=== PATIENT | male | born 1960 | race Caucasian/White ===

== ENCOUNTER 2019-04-04 19:36 | Inpatient (IN) | payer OTHER ==
[2019-04-04 20:06] LABS: #Lymphocytes 0.8 thou/uL (1.20-3.40); #Monocytes 1.1 thou/uL (0.11-0.59); #Neutrophils 14.5 thou/uL (1.40-6.50); %Basophils 0.2 % (0.0-1.0); %Eosinophils 0.2 % (0.0-10.0); %Lymphocytes 5.1 % (21.0-51.0); %Monocytes 6.8 % (0.0-10.0); %Neutrophils 87.7 % (42.0-75.0); Hemoglobin 15.6 g/dL (14.0-18.0); Mean Corpuscular HGB CONC 34.5 g/dL (32.0-36.0); Mean Corpuscular Hemoglobin 32.2 pg (27.0-31.0); Mean Corpuscular Volume 93.3 fL (78.0-98.0); Mean Platelet Volume 6.8 fL (7.4-10.4); Platelet Count 362 thou/uL (130-400); RBC Distribution Width 12.2 % (11.5-14.5); Red Blood Cell (RBC) Count 4.85 mill/uL (4.70-6.10); White Blood Cell (WBC) Count 16.6 thou/uL (4.8-10.8)
[2019-04-04 20:32] LABS: ALT (SGPT) 24 U/L (8-55); AST (SGOT) 23 U/L (5-34); Alcohol Less than 10 mg/dL (Less than 10); Alkaline Phosphatase 77 U/L (40-110); Anion Gap 13 mmol/L (10-20); BUN (Urea Nitrogen) 9 mg/dL (8.4-25.7); Bilirubin, Total 0.4 mg/dL (0.2-1.2); Calc. Creatinine Clearance 0 mL/min (70-130); Calcium 8.9 mg/dL (7.8-10.44); Carbon Dioxide 18 mmol/L (22-29); Chloride 95 mmol/L (98-107); Estimated GFR-MDRD 50; Globulin 3.2 g/dL (2.4-3.5); Glucose 123 mg/dL (70-105); Potassium 4.3 mmol/L (3.5-5.1); Protein, Total 7.2 g/dL (6.0-8.3); Salicylate Less than 8.0 mg/dL (15.0-30.0); Sodium 122 mmol/L (136-145)
[2019-04-04] MEDS ORDERED: Lorazepam 2 MG/ML VIAL ONE (20:38)
--- NOTE | 2019-04-04 21:15 | CT ---
CT BRAIN NONCONTRAST: DATE: 04/04/2019 HISTORY: 58-year-old male status post seizure. Altered mental status. Loss of consciousness. Head trauma due t o fall. FINDINGS: There is no evidence of acute intra-axial or extra-axial hemorrhage. There is no midline shift or any other mass effect. There is no extra-axial fluid collection. There is no evidence of obstructive hydrocephalus. Calvarium is intact. Minimally displaced old fracture of left lateral orbital wall, wh ich was present on previous CT of 10/23/2011. IMPRESSION: No acute intracranial findings.
[2019-04-05] MEDS ORDERED: Acetaminophen 650 MG Suppository PR PRN (02:20)
[2019-04-05] MEDS ORDERED: Ondansetron PF 4 MG/2 ML Vial IVP PRN (02:20)
[2019-04-05] MEDS ORDERED: Acetaminophen 325 MG TAB PO PRN (02:20)
[2019-04-05] MEDS ORDERED: Ondansetron ODT 4 MG TAB PO PRN (02:20)
[2019-04-05 04:32] LABS: #Eosinphils 0.1 thou/uL (0.0-0.7); #Lymphocytes 1.6 thou/uL (1.20-3.40); #Monocytes 0.9 thou/uL (0.11-0.59); %Basophils 0.5 % (0.0-1.0); %Eosinophils 0.7 % (0.0-10.0); %Lymphocytes 18.3 % (21.0-51.0); %Monocytes 10.8 % (0.0-10.0); %Neutrophils 69.8 % (42.0-75.0); Hemoglobin 13.3 g/dL (14.0-18.0); Mean Corpuscular HGB CONC 34.3 g/dL (32.0-36.0); Mean Corpuscular Hemoglobin 32.1 pg (27.0-31.0); Mean Corpuscular Volume 93.6 fL (78.0-98.0); Mean Platelet Volume 6.4 fL (7.4-10.4); Platelet Count 318 thou/uL (130-400); RBC Distribution Width 12.1 % (11.5-14.5); Red Blood Cell (RBC) Count 4.14 mill/uL (4.70-6.10); White Blood Cell (WBC) Count 8.6 thou/uL (4.8-10.8)
[2019-04-05 04:53] LABS: Anion Gap 7 mmol/L (10-20); BUN (Urea Nitrogen) 10 mg/dL (8.4-25.7); Calc. Creatinine Clearance 0 mL/min (70-130); Calcium 7.7 mg/dL (7.8-10.44); Carbon Dioxide 24 mmol/L (22-29); Chloride 105 mmol/L (98-107); Estimated GFR-MDRD 66; Glucose 95 mg/dL (70-105); Potassium 4.1 mmol/L (3.5-5.1); Sodium 132 mmol/L (136-145)
[2019-04-05] MEDS ORDERED: Enoxaparin Sodium 40 MG/0.4 ML SYRINGE SC SCH (09:00)
[2019-04-05] MEDS ORDERED: Senokot S 8.6-50 MG TAB PO PRN (09:12)
[2019-04-05] MEDS ORDERED: Calcium Carbonate 500 MG ChewTAB PO PRN (09:12)
[2019-04-05] MEDS ORDERED: Sodium Chloride 0.9% 1,000 ML IV SCH (09:15)
[2019-04-05] MEDS ORDERED: Famotidine 20 MG TAB ONE (10:37)
[2019-04-05] MEDS ORDERED: Enoxaparin Sodium 40 MG/0.4 ML SYRINGE ONE (10:37)
[2019-04-05] MEDS ORDERED: levETIRAcetam 500 MG/100 ML PREMIX BAG ONE (10:37)
[2019-04-05 11:07] LABS: Bilirubin Negative (Negative); Blood, Urine Negative (Negative); Clarity Clear (Clear); Glucose, Urine (Dipstick) 30 mg/dL (Negative); Leukocyte Negative Leu/uL (Negative); Nitrite Negative (Negative); Protein, Urine (Dipstick) 20 mg/dL (Neg-Trace); Urobilinogen Normal mg/dL (Less than 2)
[2019-04-05] MEDS ORDERED: Nicotine 14 MG PATCH TD PRN (11:12)
[2019-04-05 11:54] VITALS: BMI 26.4
[2019-04-05 12:47] LABS: Amphetamine Not Detected (NotDetected); Barbiturates Screen Not Detected (NotDetected); Benzodiazepine Screen Not Detected (NotDetected); Cocaine Metabolite Screen Not Detected (NotDetected); Medtox Control Line Valid? VALID (VALID); Medtox Reader # READER 1; Methadone Not Detected (NotDetected); Methamphetamine Not Detected (NotDetected); Opiate Screen Not Detected (NotDetected); Oxycodone Screen Not Detected (NotDetected); Phencyclidine (PCP) Not Detected (NotDetected); THC/Cannabinoid Screen Not Detected (NotDetected); Tricyclic Screen Detected (NotDetected)
[2019-04-05 15:46] VITALS: BP 136/82; TEMP 98.4
--- NOTE | 2019-04-05 19:30 | CON ---
DATE OF CONSULTATION: 04/05/2019 CONSULTING PHYSICIAN: Hospitalist Service. IMPRESSION: 1. Syncope secondary to hypotension. 2. History of seizures, on Tegretol. PLAN: 1. Continue Tegretol 200 mg twice a day. 2. Adjust blood pressure medication. HISTORY OF PRESENT ILLNESS: Mr. Vasquez is a 58-year-old man, who was recently an inmate. He reports having history of seizures for several years. He has been on Tegretol for a number of years. They have been under reasonably good control. He had medications adjusted by 2 different physicians. He was standing when he suddenly lost consciousness. He awoke on the floor. He did not have any trauma to his tongue, incontinence, or muscle soreness. He tried to get up off the floor and continued to feel quite dizzy. When he was first evaluated, his blood pressure was 60/40. His lab work was unremarkable other than a prolactin of 89. He had a CT scan of the brain done, which was normal. PAST MEDICAL HISTORY: Hypertension, bipolar disorder. ALLERGIES: NONE. SOCIAL HISTORY: He is a prior inmate. FAMILY HISTORY: Noncontributory. REVIEW OF SYSTEMS: 10-system review of systems is otherwise negative. PHYSICAL EXAMINATION: GENERAL: He is a well-nourished, middle-aged man, in no acute distress. VITAL SIGNS: Better with a blood pressure in the 100/60 range while lying down. HEENT: Pupils are equal and reactive. Conjunctivae are clear. Oropharynx clear. Cranium, normocephalic and atraumatic. NECK: Supple. EXTREMITIES: No cyanosis or edema. NEUROLOGIC: Alert and appropriate. His speech is fluent and clear. Cranial nerves 2 through 12 are intact. Motor exam shows good strength bilaterally. He has no fix or drift. He had no tremor or asterixis. Sensation was intact. Gait was not tested. LABORATORY DATA: EKG shows a sinus rhythm. SUMMARY: A middle-aged man, who has accidentally overmedicated with blood pressure medication and has caused a secondary syncopal episode. His seizures seem to be under good control by his history. I would continue the Tegretol and I would be happy to follow up with him as an outpatient. Job ID: [id number]
--- NOTE | 2019-04-05 19:45 | DIS ---
DATE OF ADMISSION: 04/04/2019 DATE OF DISCHARGE: 04/05/2019 DISCHARGE DISPOSITION: Home. FOLLOWUP: Follow up with [facility] in 1 week. ALLERGIES: NO KNOWN DRUG ALLERGIES. DISCHARGE INSTRUCTIONS: 1. A basic metabolic profile after 1 week is recommended, primary care physician advised to follow. 2. No driving until cleared by MD. DISCHARGE MEDICATIONS: Prazosin, clonidine, and lisinopril were discontinued. All other home medications were left unchanged. BRIEF HOSPITAL COURSE: The patient is a 58-year-old male with hypertension, bipolar disorder, and anxiety, presented to the hospital with altered mentation. His blood pressure in the emergency room was 57/39. Please refer to the history and physical dated [address] Humera Cantu for further details. The patient was admitted to the hospital with a diagnosis of altered mentation along with seizure and hypotension. The patient was found to have seizure-like activity per EMS. His blood pressure when EMS arrived was 66/42. His blood pressure improved after 4 L of IV fluid in the emergency room. He was monitored overnight in the stroke unit. His blood pressure at discharge was 136/82. CT scan of the brain was negative for acute findings. He was also found to have acute kidney injury with creatinine of 1.45 on admission that improved with IV hydration. His sodium on admission was 122 that improved to 132 after IV hydration. SIGNIFICANT LABORATORY DATA: 1. Prolactin level was 89. 2. Cortisol was 8.4. 3. Urine drug screen was negative except for tricyclics. Plasma alcohol was negative. Depakote level was negative. 4. Bicarbonate on admission was 18, at discharge is 24. FINAL DIAGNOSES: 1. Toxic metabolic encephalopathy, multifactorial. 2. Hypotension secondary to dehydration as well as antihypertensives. 3. Leukocytosis, unlikely to be infectious. 4. Acute kidney injury on chronic kidney disease stage 2 secondary to dehydration. 5. Hyponatremia, resolved. 6. Anxiety. 7. Depression, mild, stable. 8. Hyperlipidemia. 9. Bipolar disorder. 10. Chronic pain syndrome. 11. Metabolic acidosis. Plan was discussed with the patient in detail. He stated understanding. The patient was advised to monitor his blood pressure on a daily basis. He was also advised not to drive until under cleared by MD. INPATIENT ACCESS SPEC: Neurology, Dr. Gusman. Dr. Gusman recommended to continue Tegretol. Job ID: [id number]
[2019-04-05] MEDS ORDERED: Ziprasidone 60 MG CAP PO SCH (21:00)
[2019-04-05] MEDS ORDERED: carBAMazepine 200 MG TAB PO SCH (21:00)
[2019-04-05] MEDS ORDERED: levETIRAcetam 500 MG TAB PO SCH (21:00)
[2019-04-05] MEDS ORDERED: Atorvastatin Calcium 10 MG TAB PO SCH (21:00)
[2019-04-05] MEDS ORDERED: Famotidine 20 MG TAB PO SCH (21:00)
[2019-04-05] MEDS ORDERED: Gabapentin 300 MG CAP PO SCH (21:00)
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
[2019-04-06] MEDS ORDERED: Venlafaxine HCl XR 150 MG CAP PO SCH (09:00)
[2019-04-06] MEDS ORDERED: Prevnar 13-Val Conj/PF 0.5 ML SYRINGE IM ONE (12:15)
[2019-04-06] MEDS ORDERED: FLU VACC QS2019-20(6MOS UP)/PF 60 MCG/0.5 ML SYRINGE IM ONE (12:15)
--- NOTE | 2019-04-07 12:11 | EKG ---
Test Reason : AMS Blood Pressure : / mmHG Vent. Rate : 088 BPM Atrial Rate : 088 BPM P-R Int : 134 ms QRS Dur : 086 ms QT Int : 384 ms P-R-T Axes : 064 058 056 degrees QTc Int : 464 ms Normal sinus rhythm Normal ECG Confirmed by ALEXANDRO GAMEZ ([id number]), editor publications COURTNEY PUENTE ([id number]) on 04/07/2019 12:10:40 PM Referred By: Confirmed By:ALEXANDRO GAMEZ
== END 2019-04-05 18:15 | disposition home or self-care (01) | DRG 682 ==
LOC: ERS 19:36 → ERHOLD 23:10 → 2SE 04-05 11:34
PROVIDERS: ADMIT Hospitalist; ATTEND Hospitalist
PROC: 3E02340 Introduction of Influenza Vaccine into Muscle, Percutaneous Approach (ICD-10-PCS; principal; 2019-04-05)
PROC: 3E0234Z Introduction of Serum, Toxoid and Vaccine into Muscle, Percutaneous Approach (ICD-10-PCS; 2019-04-05)
DX: N17.9 Acute kidney failure, unspecified (principal); G92 Toxic encephalopathy; E87.2 Acidosis; E87.1 Hypo-osmolality and hyponatremia; E78.00 Pure hypercholesterolemia, unspecified; I95.2 Hypotension due to drugs; G43.909 Migraine, unspecified, not intractable, without status migrainosus; F31.9 Bipolar disorder, unspecified; F41.9 Anxiety disorder, unspecified; E86.0 Dehydration; N18.2 Chronic kidney disease, stage 2 (mild); F17.210 Nicotine dependence, cigarettes, uncomplicated; I12.9 Hypertensive chronic kidney disease with stage 1 through stage 4 chronic kidney disease, or unspecified chronic kidney disease; E78.5 Hyperlipidemia, unspecified; G89.4 Chronic pain syndrome; D72.829 Elevated white blood cell count, unspecified; T46.5X1A Poisoning by other antihypertensive drugs, accidental (unintentional), initial encounter; G40.909 Epilepsy, unspecified, not intractable, without status epilepticus; Z79.899 Other long term (current) drug therapy; Z23 Encounter for immunization
CPT/HCPCS: 36415; 70450; 80048; 80053; 80164; 80306; 80307; 81003; 82533; 83735; 84146; 85025; 93005; J1650; J1953; J2060

== ENCOUNTER 2019-04-08 14:20 | Emergency (ER) | payer OTHER ==
[2019-04-08 15:42] LABS: #Eosinphils 0.1 thou/uL (0.0-0.7); #Lymphocytes 1.5 thou/uL (1.20-3.40); #Neutrophils 8.1 thou/uL (1.40-6.50); %Basophils 0.2 % (0.0-1.0); %Eosinophils 0.8 % (0.0-10.0); %Lymphocytes 14.2 % (21.0-51.0); %Monocytes 8.9 % (0.0-10.0); %Neutrophils 75.9 % (42.0-75.0); Hemoglobin 14.4 g/dL (14.0-18.0); Mean Corpuscular HGB CONC 33.8 g/dL (32.0-36.0); Mean Corpuscular Hemoglobin 32.4 pg (27.0-31.0); Mean Corpuscular Volume 95.6 fL (78.0-98.0); Mean Platelet Volume 6.6 fL (7.4-10.4); Platelet Count 331 thou/uL (130-400); RBC Distribution Width 12.3 % (11.5-14.5); Red Blood Cell (RBC) Count 4.44 mill/uL (4.70-6.10); White Blood Cell (WBC) Count 10.6 thou/uL (4.8-10.8)
--- NOTE | 2019-04-08 15:44 | RAD ---
Exam: Chest one view HISTORY:Fall with syncope Comparison: 10/23/2011 FINDINGS: Lungs: No masses or consolidation. Cardiac silhouette: Normal size Pulmonary vessels: Normal Pleural Spaces: Slight blunting of left lateral costophrenic sulcus. Pneumothorax: None Osseous abnormalities: None of acuity. IMPRESSION: No focal consolidation. Slight blunting of costophrenic sulcus which may relate to minimal pleural fluid versus pleural thick ening.
--- NOTE | 2019-04-08 16:22 | CT ---
CT HEAD WITHOUT CONTRAST: INDICATIONS: Injury. Fall with head injury. COMPARISON: 04/04/2019 FINDINGS: There is mild frontal lobe atrophy, which is again noted. There is no evidence of intracranial hemorr miguel. No mass, edema or infarct. The sinuses are clear. No interval change. IMPRESSION: No acute findings. POS: OFF
[2019-04-08 16:25] LABS: INR-International Normal Ratio 0.9; PTT 28.8 SEC (22.9-36.1); Prothrombin Time 12.4 SEC (12.0-14.7)
[2019-04-08 16:27] LABS: D-Dimer Test 0.37 *mcg/mL (0.27-0.43)
[2019-04-08 16:42] LABS: ALT (SGPT) 15 U/L (8-55); AST (SGOT) 13 U/L (5-34); Albumin 3.9 g/dL (3.5-5.0); Alkaline Phosphatase 70 U/L (40-110); Anion Gap 15 mmol/L (10-20); BUN (Urea Nitrogen) 9 mg/dL (8.4-25.7); Bilirubin, Total 0.2 mg/dL (0.2-1.2); CK (CPK) 37 U/L (30-200); Calc. Creatinine Clearance 0 mL/min (70-130); Calcium 9.6 mg/dL (7.8-10.44); Carbon Dioxide 22 mmol/L (22-29); Chloride 100 mmol/L (98-107); Estimated GFR-MDRD 66; Globulin 2.8 g/dL (2.4-3.5); Glucose 91 mg/dL (70-105); Potassium 4.2 mmol/L (3.5-5.1); Protein, Total 6.7 g/dL (6.0-8.3); Sodium 133 mmol/L (136-145)
[2019-04-08] MEDS ORDERED: traMADol HCl 50 MG TAB ONE (17:07)
--- NOTE | 2019-04-10 17:17 | EKG ---
Test Reason : ER Blood Pressure : / mmHG Vent. Rate : 093 BPM Atrial Rate : 093 BPM P-R Int : 134 ms QRS Dur : 088 ms QT Int : 352 ms P-R-T Axes : 039 038 035 degrees QTc Int : 437 ms Normal sinus rhythm Normal ECG Confirmed by WILMAN PRO MD ([id number]), electronic news gathering editor MAXI JOE ([id number]) on 04/10/2019 5:16:53 PM Referred By: Confirmed By:WILMAN PRO MD
== END 2019-04-08 18:36 | disposition home or self-care (01) ==
LOC: ERS 14:20
DX: S01.102A Unspecified open wound of left eyelid and periocular area, initial encounter (principal); R55 Syncope and collapse; T43.595A Adverse effect of other antipsychotics and neuroleptics, initial encounter; E78.00 Pure hypercholesterolemia, unspecified; F31.9 Bipolar disorder, unspecified; F41.9 Anxiety disorder, unspecified; F17.210 Nicotine dependence, cigarettes, uncomplicated; Z79.899 Other long term (current) drug therapy; W18.30XA Fall on same level, unspecified, initial encounter
CPT/HCPCS: 36415; 70450; 71045; 80053; 82550; 83605; 83880; 84484; 85025; 85379; 85610; 85730; 93005; 94760; 96360; 96361

== ENCOUNTER 2019-08-28 13:22 | Inpatient (IN) | payer OTHER, SELFPAY ==
[2019-08-28 13:57] LABS: #Eosinphils 0.1 thou/uL (0.0-0.7); #Monocytes 0.8 thou/uL (0.11-0.59); #Neutrophils 7.7 thou/uL (1.40-6.50); %Basophils 0.1 % (0.0-1.0); %Eosinophils 0.7 % (0.0-10.0); %Lymphocytes 10.2 % (21.0-51.0); %Monocytes 8.8 % (0.0-10.0); %Neutrophils 80.3 % (42.0-75.0); Hemoglobin 13.7 g/dL (14.0-18.0); Mean Corpuscular HGB CONC 34.3 g/dL (32.0-36.0); Mean Corpuscular Hemoglobin 32.9 pg (27.0-31.0); Mean Platelet Volume 7.4 fL (7.4-10.4); Platelet Count 253 thou/uL (130-400); RBC Distribution Width 12.5 % (11.5-14.5); Red Blood Cell (RBC) Count 4.18 mill/uL (4.70-6.10); White Blood Cell (WBC) Count 9.6 thou/uL (4.8-10.8)
--- NOTE | 2019-08-28 13:57 | RAD ---
EXAM: Single view of the chest HISTORY: Altered mental status COMPARISON: 04/08/2019 FINDINGS: Single view of the chest shows a normal sized cardiomediastinal silhouette. There is no gabriella dence of consolidation, mass, or pleural effusion. The bones are unremarkable. IMPRESSION: No evidence of acute cardiopulmonary disease
--- NOTE | 2019-08-28 14:11 | CT ---
CT Brain WO Con: 08/28/2019 1:32 PM CLINICAL HISTORY: Altered mental status; concern for possible overdose. IMAGING TECHNIQUE: Multiple CT images were obtained of the brain without IV contrast. COMPARISON: April 08, 2019 FINDINGS: Brain: No acute infarct or hemorrhage is evident. No midline shift. Ventricles: Normal. No hydrocephalus. Skull: Intact. Visualized Paranasal sinuses: Clear. Mastoid air cells:Clear. Extracranial soft tissues:Normal. IMPRESSION: No acute intracranial abnormality.
[2019-08-28] MEDS ORDERED: Naloxone HCl 0.4 mg/ml Vial ONE (14:13)
[2019-08-28 14:17] LABS: ALT (SGPT) 30 U/L (8-55); AST (SGOT) 29 U/L (5-34); Albumin 4.2 g/dL (3.5-5.0); Alkaline Phosphatase 82 U/L (40-110); Anion Gap 15 mmol/L (10-20); BUN (Urea Nitrogen) 18 mg/dL (8.4-25.7); Bilirubin, Total 0.4 mg/dL (0.2-1.2); Calc. Creatinine Clearance 0 mL/min (70-130); Carbon Dioxide 21 mmol/L (22-29); Chloride 102 mmol/L (98-107); Estimated GFR-MDRD 27; Globulin 2.4 g/dL (2.4-3.5); Glucose 77 mg/dL (70-105); Potassium 4.8 mmol/L (3.5-5.1); Protein, Total 6.6 g/dL (6.0-8.3); Sodium 133 mmol/L (136-145)
[2019-08-28 14:18] LABS: Acetaminophen Less than 6.0 mcg/mL (10.0-30.0); Alcohol Less than 10 mg/dL (Less than 10); Salicylate Less than 8.0 mg/dL (15.0-30.0)
[2019-08-28 14:46] LABS: Bacteria/HPF None Seen HPF (None Seen); Bilirubin Negative (Negative); Blood, Urine Negative (Negative); Clarity Clear (Clear); Glucose, Urine (Dipstick) Normal (Negative); Leukocyte Negative Leu/uL (Negative); Mucous/LPF 1+ LPF (<2+); Nitrite Negative (Negative); Protein, Urine (Dipstick) 30 mg/dL (Neg-Trace); RBC/HPF 0-3 HPF (0-3); Squamous Epithelial 0-3 HPF (0-3); Urobilinogen Normal mg/dL (Less than 2); WBC/HPF 0-3 HPF (0-3)
[2019-08-28 14:53] LABS: Amphetamine Not Detected (NotDetected); Barbiturates Screen Not Detected (NotDetected); Benzodiazepine Screen Not Detected (NotDetected); Cocaine Metabolite Screen Not Detected (NotDetected); Medtox Control Line Valid? VALID (VALID); Medtox Reader # READER 1; Methadone Not Detected (NotDetected); Methamphetamine Not Detected (NotDetected); Opiate Screen Not Detected (NotDetected); Oxycodone Screen Not Detected (NotDetected); Phencyclidine (PCP) Detected (NotDetected); THC/Cannabinoid Screen Not Detected (NotDetected); Tricyclic Screen Detected (NotDetected)
[2019-08-28] MEDS ORDERED: Acetaminophen 325 MG TAB PO PRN (16:22)
[2019-08-28] MEDS ORDERED: Ondansetron PF 4 MG/2 ML Vial IVP PRN (16:22)
[2019-08-28] MEDS ORDERED: Ondansetron ODT 4 MG TAB PO PRN (16:22)
[2019-08-28] MEDS ORDERED: HYDROcodone/Acetaminophen 5/325 mg Tablet PO PRN (16:22)
[2019-08-28] MEDS ORDERED: Bisacodyl 5 MG TAB PO PRN (16:22)
[2019-08-28] MEDS ORDERED: Loperamide HCl 2 MG CAP PO PRN (16:22)
--- NOTE | 2019-08-28 18:47 | ULT ---
Renal ultrasound: 08/28/2019 COMPARISON:None available HISTORY:Acute kidney injury TECHNIQUE: Multiplanar grayscale sonographic imaging of the kidneys and urinary bladder obtained. FINDINGS: The right kidney [id number] x 4.7 x 5.3 cm and demonstratesno mass, hydronephrosis, or st one. The left kidney sgcexsek80.4 x 5.2 x 4.4 cm and demonstratesno evidence for mass, hydronephrosis, or stone. The urinary bladderappears grossly unremarkable. IMPRESSION:No hydronephrosis.
--- NOTE | 2019-08-28 20:23 | PDOC.HHP ---
Hospitalist HPI - History of Present Illness AMS History of Present Illness: 58-year-old gentleman with past medical history of seizure disorder, bipolar disorder, depression, chronic pain syndrome, hypertension, and osteoarthritis presents with altered mental status. Patient was reportedly found by family being less responsive than normal and is blood pressure was low in the field. Upon arrival to [facility] the patient is alert and oriented times three and talking in full sentences. Patient's blood pressure is normalized. He is lethargic though answering questions appropriately. Patient states that he did not take any illicit drugs. Patient does admit to taking a new medication for depression that starts with an L, though he does not remember the name. Patient denies taking access of any medications. Patient denies drinking alcohol. Patient does admit to tobacco use. Patient's urinary drug screen is positive for PCP, though he denies this. Positive for tri-cyclic antidepressants which he has been in the past. Negative alcohol level. Negative for other drugs of abuse. Negative salicylate and acetaminophen levels. Patient has no elevation in WBC count. Urine analysis negative for urinary tract infection. Patient is dehydrated with acute kidney injury present on admission. Patient admitted to the medical unit for further evaluation. Hospitalist ROS - Review of Systems All other systems reviewed; all pertinent +/- noted in HPI/Subj Hospitalist History - Past Medical History Source: patient, old records Cardiac: reports: HTN [facility] SPECIALIST: reports: Seizure Psych: reports: Anxiety, Bipolar, Depression Musculoskeletal: reports: Chronic low back pain, Osteoarthritis - Past Surgical History Past Surgical History: reports: Appendectomy, Other - Family History Family History: reports: hyperlipidemia, hypertension - Social History Smoking Status: Current every day smoker Tobacco Type: chewing tobacco Alcohol: reports: Rare Drugs: reports: none (Patient denies though, PCP positive in urine drug screen) Living Situation: With Family Domestic Violence: Negative Activity level: independent ambulation - Exam General Appearance: NAD, awake alert Eye: anicteric sclera ENT: normocephalic atraumatic, moist mucosa Neck: supple, symmetric, no lymphadenopathy Heart: RRR, no murmur, no gallops, no rubs Respiratory: CTAB, no wheezes, no rales, no ronchi, normal chest expansion, no tachypnea Gastrointestinal: soft, non-tender, non-distended, no guarding, no rigidity Extremities: no edema Skin: no lesions, no rashes Neurological: cranial nerve grossly intact, no focal deficits Musculoskeletal: generalized weakness Psychiatric: A&O x 3, flat affect, somnolent Hospitalist Results - Labs Result Diagrams: 08/28/19 13:38 08/28/19 13:38 Lab results: WBC 9.6 thou/uL (4.8-10.8) 08/28/19 13:38 Hgb 13.7 g/dL (14.0-18.0) L 08/28/19 13:38 Hct 40.1 % (42.0-52.0) L 08/28/19 13:38 MCV 96.0 fL (78.0-98.0) 08/28/19 13:38 Plt Count 253 thou/uL (130-400) 08/28/19 13:38 Neutrophils % 80.3 % (42.0-75.0) H 08/28/19 13:38 Sodium 133 mmol/L (136-145) L 08/28/19 13:38 Potassium 4.8 mmol/L (3.5-5.1) 08/28/19 13:38 Chloride 102 mmol/L (98-107) 08/28/19 13:38 Carbon Dioxide 21 mmol/L (22-29) L 08/28/19 13:38 BUN 18 mg/dL (8.4-25.7) 08/28/19 13:38 Creatinine 2.50 mg/dL (0.7-1.3) H 08/28/19 13:38 Glucose 77 mg/dL (70-105) 08/28/19 13:38 Calcium 9.0 mg/dL (7.8-10.44) 08/28/19 13:38 Total Bilirubin 0.4 mg/dL (0.2-1.2) 08/28/19 13:38 AST 29 U/L (5-34) 08/28/19 13:38 ALT 30 U/L (8-55) 08/28/19 13:38 Alkaline Phosphatase 82 U/L (40-110) 08/28/19 13:38 Troponin I 0.014 ng/mL (< 0.028) 08/28/19 13:38 Serum Total Protein 6.6 g/dL (6.0-8.3) 08/28/19 13:38 Albumin 4.2 g/dL (3.5-5.0) 08/28/19 13:38 Urine Ketones Negative mg/dL (Negative) 08/28/19 14:22 Urine Blood Negative (Negative) 08/28/19 14:22 Urine Nitrite Negative (Negative) 08/28/19 14:22 Ur Leukocyte Esterase Negative Bartolo/uL (Negative) 08/28/19 14:22 Urine RBC 0-3 HPF (0-3) 08/28/19 14:22 Urine WBC 0-3 HPF (0-3) 08/28/19 14:22 Ur Squamous Epith Cells 0-3 HPF (0-3) 08/28/19 14:22 Urine Bacteria None Seen HPF (None Seen) 08/28/19 14:22 - Radiology Interpretation CT scan - head Status: image reviewed by me Chest x-ray Status: image reviewed by me Hospitalist H&P A/P - Problem (1) PCP intoxication Code(s): F16.929 - HALLUCINOGEN USE, UNSPECIFIED WITH INTOXICATION, UNSPECIFIED Status: Acute (2) AMS (altered mental status) Code(s): R41.82 - ALTERED MENTAL STATUS, UNSPECIFIED Status: Acute (3) BORIS (acute kidney injury) Code(s): N17.9 - ACUTE KIDNEY FAILURE, UNSPECIFIED Status: Acute (4) Dehydration Code(s): E86.0 - DEHYDRATION Status: Acute (5) Hypotension Status: Acute (6) Depression Code(s): F32.9 - MAJOR DEPRESSIVE DISORDER, SINGLE EPISODE, UNSPECIFIED Status : Acute (7) Bipolar 1 disorder Code(s): F31.9 - BIPOLAR DISORDER, UNSPECIFIED Status: Acute (8) Back pain Code(s): M54.9 - DORSALGIA, UNSPECIFIED Status: Acute (9) Seizure Code(s): R56.9 - UNSPECIFIED CONVULSIONS Status: Acute - Plan Plan: Plan: admit to medical unit with telemetry altered mental status likely secondary to PCP intoxication and dehydration acute kidney injury present on admission IV fluid resuscitation renal ultrasound has ruled out obstructive process normal WBC count, afebrile, no indication for antibiotics at this time urine analysis is negative for bladder infection urinary toxicology positive for PCP, negative for acetaminophen or salicylates. Negative alcohol level. Tricyclic antidepressants are in urinary drug screen continue home medications as able blood pressure control Blood sugar control GI prophylaxis DVT prophylaxis
[2019-08-28] MEDS: Sodium Chloride 0.9% 1,000 ML IV SCH (22:58)
[2019-08-28] MEDS: Gabapentin 300 MG CAP PO SCH (23:02)
[2019-08-28] MEDS: Famotidine 20 MG TAB PO SCH (23:03)
[2019-08-28] MEDS: traMADol HCl 50 MG TAB PO SCH (23:03)
[2019-08-28] MEDS: Pravastatin Sodium 40 MG TAB PO SCH (23:03)
[2019-08-28] MEDS: carBAMazepine 200 MG TAB PO SCH (23:04)
[2019-08-28] MEDS: Heparin 5,000 UNITS/ML VIAL SC SCH (23:07)
[2019-08-28] MEDS: Ziprasidone 60 MG CAP PO SCH (23:18)
[2019-08-29] MEDS: traMADol HCl 50 MG TAB PO SCH ×4 (01:47→17:27)
--- NOTE | 2019-08-29 08:13 | PDOC.HOSPP ---
- Subjective Encounter Date: 08/29/19 Encounter Time: 10:30 Subjective: Patient awake and alert. Jittery due to wants to smoke, asks for nicotine patch. Denies Suicide attempt or overdose. States he started a new medication starting with L 2 days ago, made him dizzy, lightheaded. Denies PCP or illicit drug use. Has baseline depression but denies suicidal ideation/attempt. Feeling back to baseline now. - Objective Vital Signs & Weight: Vital Signs (12 hours) Temp Pulse Resp BP Pulse Ox 08/29/19 04:00 98.7 F 76 18 120/59 L 92 L 08/28/19 21:12 99.3 F 88 18 129/63 95 Weight Weight 176 lb 3.2 oz Result Diagrams: 08/29/19 11:09 08/29/19 11:09 Hospitalist ROS - Review of Systems Constitutional: denies: fever, chills Respiratory: denies: cough, shortness of breath Cardiovascular: denies: chest pain, palpitations Gastrointestinal: denies: nausea, vomiting, abdominal pain Musculoskeletal: reports: back pain - Medication Medications: Active Medications Generic Name Dose Route Start Last Admin Trade Name Freq PRN Reason Stop Dose Admin Carbamazepine 200 mg 08/28/19 21:00 08/28/19 23:04 Tegretol PO 200 mg BID KIMBERLY Administration Famotidine 20 mg 08/28/19 21:00 08/28/19 23:03 Pepcid PO 20 mg QPM KIMBERLY Administration Gabapentin 600 mg 08/28/19 21:00 08/28/19 23:02 Neurontin PO 600 mg BID KIMBERLY Administration Heparin Sodium (Porcine) 5,000 units 08/28/19 21:00 08/28/19 23:07 Heparin SC 5,000 units TID KIMBERLY Administration Sodium Chloride 1,000 mls @ 100 mls/hr 08/28/19 16:30 08/28/19 22:58 Normal Saline 0.9% IV 1,000 mls .Q10H KIMBERLY Administration Pravastatin Sodium 40 mg 08/28/19 21:00 08/28/19 23:03 Pravachol PO 40 mg HS KIMBERLY Administration Quetiapine Fumarate 200 mg 08/28/19 21:00 08/28/19 23:18 Seroquel PO 200 mg HS KIMBERLY Administration Tramadol HCl 50 mg 08/28/19 18:00 08/29/19 06:48 Ultram PO 50 mg Q6HR KIMBERLY Administration Ziprasidone 60 mg 08/28/19 21:00 08/28/19 23:18 Geodon PO 60 mg HS KIMBERLY Administration - Exam General Appearance: NAD, awake alert ENT: moist mucosa Heart: RRR, no murmur, no gallops, no rubs Respiratory: CTAB, no wheezes, no rales, no ronchi Gastrointestinal: soft, non-tender, non-distended, normal bowel sounds Neurological: cranial nerve grossly intact, no focal deficits Musculoskeletal: normal tone, normal strength Psychiatric: normal behavior, A&O x 3 Psychiatric - other findings: affect a bit jittery Hosp A/P (1) PCP intoxication Code(s): F16.929 - HALLUCINOGEN USE, UNSPECIFIED WITH INTOXICATION, UNSPECIFIED Status: Acute Plan: Patient denies (2) Acute encephalopathy Code(s): G93.40 - ENCEPHALOPATHY, UNSPECIFIED Status: Acute (3) BORIS (acute kidney injury) Code(s): N17.9 - ACUTE KIDNEY FAILURE, UNSPECIFIED Status: Acute Plan: lab recheck pending (4) Hypotension Status: Resolved (5) Volume depletion Code(s): E86.9 - VOLUME DEPLETION, UNSPECIFIED Status: Resolved (6) Bipolar 1 disorder Code(s): F31.9 - BIPOLAR DISORDER, UNSPECIFIED Status: Chronic (7) Seizure disorder Code(s): G40.909 - EPILEPSY, UNSP, NOT INTRACTABLE, WITHOUT STATUS EPILEPTICUS Status: Chronic (8) Back pain Code(s): M54.9 - DORSALGIA, UNSPECIFIED Status: Chronic - Plan Vitals stable in hospital, no more hypotension Morning labs pending for kidney recheck Patient AMS likely due to new medication and dehydration Home when kidneys improving, likely later today. Stop new medication and f/u with psychiatrist. No SI or attempt, can d/c the sitter.
[2019-08-29] MEDS: Sodium Chloride 0.9% 1,000 ML IV SCH ×2 (08:14→20:43)
[2019-08-29] MEDS: Heparin 5,000 UNITS/ML VIAL SC SCH ×3 (08:14→20:29)
[2019-08-29] MEDS: Gabapentin 300 MG CAP PO SCH (08:15)
[2019-08-29] MEDS: carBAMazepine 200 MG TAB PO SCH ×2 (08:15→20:30)
[2019-08-29] MEDS: Venlafaxine HCl XR 150 MG CAP PO SCH (08:15)
[2019-08-29] MEDS ORDERED: Nicotine 21 MG PATCH TD SCH (11:00)
[2019-08-29 11:19] LABS: #Eosinphils 0.1 thou/uL (0.0-0.7); #Lymphocytes 1.5 thou/uL (1.20-3.40); #Lymphocytes 1.6 thou/uL (1.20-3.40); #Monocytes 0.6 thou/uL (0.11-0.59); #Neutrophils 3.7 thou/uL (1.40-6.50); #Neutrophils 3.8 thou/uL (1.40-6.50); %Basophils 0.2 % (0.0-1.0); %Eosinophils 1.1 % (0.0-10.0); %Eosinophils 1.3 % (0.0-10.0); %Lymphocytes 25.9 % (21.0-51.0); %Monocytes 10.4 % (0.0-10.0); %Monocytes 9.3 % (0.0-10.0); %Neutrophils 62.1 % (42.0-75.0); %Neutrophils 63.5 % (42.0-75.0); Hemoglobin 12.9 g/dL (14.0-18.0); Mean Corpuscular HGB CONC 33.9 g/dL (32.0-36.0); Mean Corpuscular HGB CONC 34.2 g/dL (32.0-36.0); Mean Corpuscular Hemoglobin 32.4 pg (27.0-31.0); Mean Corpuscular Hemoglobin 32.6 pg (27.0-31.0); Mean Corpuscular Volume 95.4 fL (78.0-98.0); Mean Corpuscular Volume 95.6 fL (78.0-98.0); Mean Platelet Volume 6.9 fL (7.4-10.4); Mean Platelet Volume 7.1 fL (7.4-10.4); Platelet Count 220 thou/uL (130-400); RBC Distribution Width 12.4 % (11.5-14.5); Red Blood Cell (RBC) Count 3.98 mill/uL (4.70-6.10); Red Blood Cell (RBC) Count 3.99 mill/uL (4.70-6.10); White Blood Cell (WBC) Count 5.9 thou/uL (4.8-10.8)
[2019-08-29] MEDS: Gabapentin 400 MG CAP PO SCH ×3 (11:31→20:29)
[2019-08-29 12:11] LABS: Anion Gap 10 mmol/L (10-20); BUN (Urea Nitrogen) 15 mg/dL (8.4-25.7); Calcium 8.5 mg/dL (7.8-10.44); Carbon Dioxide 26 mmol/L (22-29); Chloride 108 mmol/L (98-107); Glucose 80 mg/dL (70-105); Potassium 4.5 mmol/L (3.5-5.1); Sodium 139 mmol/L (136-145)
[2019-08-29 12:13] LABS: Calc. Creatinine Clearance 102 mL/min (70-130); Estimated GFR-MDRD 87
[2019-08-29] MEDS: Ziprasidone 60 MG CAP PO SCH (20:28)
[2019-08-29] MEDS: Famotidine 20 MG TAB PO SCH (20:29)
[2019-08-29] MEDS: Pravastatin Sodium 40 MG TAB PO SCH (20:29)
[2019-08-29] MEDS ORDERED: FLU VACC QS2019-20(6MOS UP)/PF 60 MCG/0.5 ML SYRINGE IM ONE (21:00)
[2019-08-30] MEDS: traMADol HCl 50 MG TAB PO SCH ×3 (01:11→11:29)
[2019-08-30] MEDS: Heparin 5,000 UNITS/ML VIAL SC SCH ×2 (08:03→14:09)
[2019-08-30] MEDS: Venlafaxine HCl XR 150 MG CAP PO SCH (08:04)
[2019-08-30] MEDS: Gabapentin 400 MG CAP PO SCH ×2 (08:04→14:07)
[2019-08-30] MEDS: carBAMazepine 200 MG TAB PO SCH (08:04)
--- NOTE | 2019-08-30 08:12 | PDOC.HOSPP ---
- Subjective Encounter Date: 08/30/19 Encounter Time: 13:15 Subjective: Patient feeling less jittery with nicotine patch. Eager to get over to [facility]. - Objective Vital Signs & Weight: Vital Signs (12 hours) Temp Pulse Resp BP Pulse Ox 08/30/19 03:40 97.7 F 76 20 128/77 93 L Weight Weight 178 lb 8 oz I&O: 08/29/19 08/30/19 08/31/19 06:59 06:59 06:59 Intake Total 3440 Output Total 600 Balance 2840 Result Diagrams: 08/29/19 11:09 08/29/19 11:09 Hospitalist ROS - Review of Systems Respiratory: denies: cough, shortness of breath Cardiovascular: denies: chest pain, palpitations, orthopnea Gastrointestinal: denies: nausea, vomiting, abdominal pain - Medication Medications: Active Medications Generic Name Dose Route Start Last Admin Trade Name Freq PRN Reason Stop Dose Admin Carbamazepine 200 mg 08/28/19 21:00 08/30/19 08:04 Tegretol PO 200 mg BID KIMBERLY Administration Famotidine 20 mg 08/28/19 21:00 08/29/19 20:29 Pepcid PO 20 mg QPM KIMBERLY Administration Gabapentin 800 mg 08/29/19 09:00 08/30/19 08:04 Neurontin PO 800 mg TID KIMBERLY Administration Heparin Sodium (Porcine) 5,000 units 08/28/19 21:00 08/30/19 08:03 Heparin SC 5,000 units TID KIMBERLY Administration Nicotine 21 mg 08/30/19 09:00 08/30/19 08:03 Nicoderm Patch TD 21 mg DAILY KIMBERLY Administration Pravastatin Sodium 40 mg 08/28/19 21:00 08/29/19 20:29 Pravachol PO 40 mg HS KIMBERLY Administration Quetiapine Fumarate 200 mg 08/28/19 21:00 08/29/19 20:29 Seroquel PO 200 mg HS KIMBERLY Administration Tramadol HCl 50 mg 08/28/19 18:00 08/30/19 05:58 Ultram PO 50 mg Q6HR KIMBERLY Administration Venlafaxine HCl 150 mg 08/29/19 09:00 08/30/19 08:04 Effexor Xr PO 150 mg DAILY KIMBERLY Administration Ziprasidone 60 mg 08/28/19 21:00 02/26/20 20:28 Geodon PO 60 mg HS KIMBERLY Administration - Exam General Appearance: NAD, awake alert ENT: moist mucosa Heart: RRR, no murmur, no gallops, no rubs Respiratory: CTAB, no wheezes, no rales, no ronchi Gastrointestinal: soft, non-tender, non-distended, normal bowel sounds Neurological: cranial nerve grossly intact, no focal deficits Psychiatric: normal affect, normal behavior, A&O x 3 Hosp A/P (1) PCP intoxication Code(s): F16.929 - HALLUCINOGEN USE, UNSPECIFIED WITH INTOXICATION, UNSPECIFIED Status: Acute (2) Acute encephalopathy Code(s): G93.40 - ENCEPHALOPATHY, UNSPECIFIED Status: Acute (3) BORIS (acute kidney injury) Code(s): N17.9 - ACUTE KIDNEY FAILURE, UNSPECIFIED Status: Acute (4) Hypotension Status: Resolved (5) Volume depletion Code(s): E86.9 - VOLUME DEPLETION, UNSPECIFIED Status: Resolved (6) Bipolar 1 disorder Code(s): F31.9 - BIPOLAR DISORDER, UNSPECIFIED Status: Chronic (7) Seizure disorder Code(s): G40.909 - EPILEPSY, UNSP, NOT INTRACTABLE, WITHOUT STATUS EPILEPTICUS Status: Chronic (8) Back pain Code(s): M54.9 - DORSALGIA, UNSPECIFIED Status: Chronic - Plan Vitals stable in hospital, no more hypotension Creatinine resolved, off IV fluids Patient with auditory hallucinations. Evaluated by [facility] yesterday and recommendation for inpatient psych. I spoke to Dr. Flores at [facility] and they have accepted for admission. Will transfer.
[2019-08-30] MEDS ORDERED: Nicotine 21 MG PATCH TD SCH (09:00)
[2019-08-30 12:53] VITALS: BP 174/94; TEMP 98.5
[2019-08-30] MEDS ORDERED: traMADol HCl 50 MG TAB PO PRN (13:37)
--- NOTE | 2019-08-30 17:47 | PQF ---
CLINICAL DOCUMENTATION IMPROVEMENT CLARIFICATION FORM: ICD-10 Updated PLEASE DO AN ADDENDUM TO THE PROGRESS NOTE WITH ANY DOCUMENTATION UPDATES OR ADDITIONS AND CARRY THROUGH TO DC SUMMARY. THANK YOU. DATE: 08/30/2019 ATTN: Dr. Cuevas Please exercise your independent, professional judgment in responding to the clarification form. Clinical indicators are provided on the bottom of this form for your review Please check appropriate box(s): [ X ] Encephalopathy: Etiology: [ ] Metabolic [ X ] Toxic [ ] Drug induced: [ ] Unspecified [ ] Other (please specify) [ ] Other diagnosis [ ] Unable to determine In addition, please specify: Present on Admission (POA): [ X ] Yes [ ] No [ ] Unable to determine For continuity of documentation, please document condition throughout progress notes and discharge summary. Thank You. CLINICAL INDICATORS - SIGNS / SYMPTOMS / LABS / RESULTS AND LOCATION IN EMR H&P 08/28: Pt does admit to taking a new medication for depression that starts with an L, though does not remember the name. Pt's urinary drug screen is positive for PCP, though he denies this. -Plan: altered mental status likely secondary to PCP intoxication and dehydration PN 08/29: PCP intoxication Acute encephalopathy BORIS -Plan Patient AMS likely due to new medication and dehydration. RISKS: H&P 08/28: PMH HTN. Anxiety, bipolar, depression. Assessment: AMS. BORIS. Dehydration. Hypotension. TREATMENT: MAR: 08/28-08/29: NS IV 100ml hr PN 08/29: Stop new medication and f/u with psychiatrist Thank you, Berna (This form is maintained as a part of the permanent medical record) 2014 [employer]. All Rights Reserved Berna Hurtado RN, BSN [email or web address] Office: [phone] [facility]
--- NOTE | 2019-08-31 10:57 | DIS ---
DATE OF ADMISSION: 08/28/2019 DATE OF DISCHARGE: 08/30/2019 PRIMARY CARE PHYSICIAN: Kary Mcfarland. REASON FOR ADMISSION: Altered mental status and hypotension. DIAGNOSES AT DISCHARGE: 1. Seroquel overdose. 2. Possible PCP abuse versus new psychiatric medication. 3. Acute encephalopathy, resolved. 4. Acute kidney injury, resolved. 5. Hypotension, resolved. 6. Bipolar I disorder. 7. Seizure disorder. 8. Back pain. PROCEDURES: None. CONSULTATIONS: None. SUMMARY OF HOSPITAL COURSE: This is a 58-year-old white male with a known history of bipolar disorder, previous seizures, and depression, also with a history of prescription drug abuse and recent incarceration. He presented with altered mental status. No known attempt to kill himself for visualized overdose. He lives in a trailer outside his mother and [id number] house. They took him into the emergency room when he became less responsive. He was found to have low blood pressure, was given IV fluids, and then, he started to become more alert. He returned to his baseline mental status. He did originally have elevated creatinine, this normalized after IV fluid administration. He did come back positive for PCP on his urine drug screen, he denied taking this. He was on an unknown new medication that starts with L for the past couple of days. Eventually, he also admitted that he had taken 3 times of normal dose of Seroquel because there were voices that kept talking to him. He denied any suicidal or homicidal ideation. [facility] did come and evaluate him after he was cleared medically and they determined he would benefit from inpatient psychiatric stay. He is being transferred to [facility]. I did talk to at [facility] and he has accepted him for admission. DISCHARGE MANAGEMENT: Transferred [facility]. ACTIVITY: As tolerated. DIET: Regular diet. FOLLOWUP: Follow up with [facility] as directed. DISCHARGE MEDICATIONS: 1. Tegretol 200 mg twice a day. 2. Gabapentin 800 mg three times a day. 3. Nicotine patch 21 mg transdermal daily. 4. Pravastatin 40 mg at night. 5. Seroquel 200 mg two tablets at night. 6. Tramadol 1 to 2 tablets every 6 hours as needed for pain. 7. Effexor XR 150 mg daily. 8. Geodon 60 mg at night. Job ID: [id number]
== END 2019-08-30 16:30 | DRG 917 ==
LOC: ERS 13:22 → 2NO 21:17
PROVIDERS: ADMIT Internal Medicine; ATTEND Emergency Medicine
DX: T43.591A Poisoning by other antipsychotics and neuroleptics, accidental (unintentional), initial encounter (principal); G92 Toxic encephalopathy; N17.9 Acute kidney failure, unspecified; E86.0 Dehydration; I95.9 Hypotension, unspecified; F31.9 Bipolar disorder, unspecified; G40.909 Epilepsy, unspecified, not intractable, without status epilepticus; M54.9 Dorsalgia, unspecified; G89.4 Chronic pain syndrome; M19.90 Unspecified osteoarthritis, unspecified site; I10 Essential (primary) hypertension; F41.9 Anxiety disorder, unspecified; F17.220 Nicotine dependence, chewing tobacco, uncomplicated; F13.10 Sedative, hypnotic or anxiolytic abuse, uncomplicated; Z79.899 Other long term (current) drug therapy; Z90.49 Acquired absence of other specified parts of digestive tract
CPT/HCPCS: 36415; 51701; 70450; 71045; 76770; 80048; 80053; 80306; 80307; 81003; 81015; 84484; 85025; 93005; 96361; 96374; J1644; J2310